=== PATIENT | male | born 1980 | race Caucasian/White ===

== ENCOUNTER 2018-07-25 08:30 | Outpatient (RCR) | payer BC | END 2018-07-25 09:00 | disposition home or self-care (01) | LOC: PT 08:30 | DX: M54.5 Low back pain (principal) ==

== ENCOUNTER → 2023-07-31 | Outpatient (CLI) | payer OTHER | LOC: RAD 08:00 → VAS 09:30 | DX: S80.12XD Contusion of left lower leg, subsequent encounter (principal); T14.8XXA Other injury of unspecified body region, initial encounter ==

== ENCOUNTER 2024-01-09 14:30 | Outpatient (RCR) | payer BC | END 2024-01-24 | disposition home or self-care (01) | LOC: PT | DX: M54.17 Radiculopathy, lumbosacral region (principal) ==